=== PATIENT | male | born 1950 | race Caucasian/White ===

== ENCOUNTER → 2023-05-07 | Day surgery (SDC) | payer OTHER ==
[2023-05-04 15:10] LABS: Absolute Basophils 0.1 K/uL (0-0.5); Absolute Eosinophils 0.1 K/uL (0-0.5); Absolute Lymphocytes (CBC) 3.3 K/uL (0.7-4.9); Absolute Monocytes 0.5 K/uL (0.1-1.3); Absolute Neutrophil 4.4 K/uL (1.8-8.0); Basophils % 1.2 % (0-1.3); Eosinophils % 0.9 % (0-4.4); Hematocrit 43.1 % (39.6-49.0); Hemoglobin 14.6 g/dL (13.6-17.9); MCH 32.2 pg (27.0-35.0); MCHC 33.8 g/dL (32.0-36.0); MCV 95.2 fL (80-100); MPV 8.9 fL (7.6-11.3); Monocytes % 5.8 % (3.3-12.3); Neutrophils % 53.1 % (41.7-73.7); Platelets 234 thou/uL (152-406); RBC Red Blood Cell Count 4.52 M/uL (4.33-5.43); Red Cell Distribution Width 13.8 % (12.1-15.2)
[2023-05-04 15:23] LABS: Anion Gap 7.9 mEq/L (5.0-15.0); Potassium 3.9 mEq/L (3.5-5.1)
--- NOTE | 2023-05-04 19:39 | RAD REPORT ---
EXAM DESCRIPTION: RAD - Chest Pa And Lat (2 Views) - 05/04/2023 3:09 pm CLINICAL HISTORY: pre op for surgery. Hypertension COMPARISON: Chest Pa And Lat (2 Views) dated 03/03/2021; Abdomen 1 View (KUB) dated 02/14/2021; Abdom en 1 View (KUB) dated 04/14/2019; Abdomen 1 View (KUB) dated 02/03/2019 TECHNIQUE: PA and lateral views of the chest were obtained. FINDINGS: The lungs are clear. Heart size is normal and central vasculature is within normal limits. No pleural effusion or pneumothorax seen. No acute bony finding noted. IMPRESSION: No acute cardiopulmonary process.
[~2023-05-07] MED LIST: FENTANYL CITR 100 MCG/2 ML ONE; GLYCOPYRROLATE 0.2 MG/ML SYR ONE; KETOROLAC 30 MG/ML INJ ONE; LIDOCAINE 1% MPF 5 ML VIAL ONE; MIDAZOLAM HCL 2 MG/2 ML INJ ONE; NEOSTIGMINE 1 MG/ML -10 ML VIAL ONE; ONDANSETRON 4 MG/2 ML VIAL ONE; ROCURONIUM 50 MG/5 ML VIAL IV ONE; propofoL 200 MG/20 ML VIAL IV ONE
[2023-05-07] MEDS: NA CHLORIDE 0.9% 1,000 ML ONE ×2 (08:20→10:56)
[2023-05-07] MEDS: CEFAZOLIN SODIUM 1 GM/VIAL ONE (09:25)
--- NOTE | 2023-05-07 10:14 | P.BOP ---
Preoperative diagnosis: Tender right inguinal hernia Postoperative diagnosis: same Primary procedure: laparoscopic repair of Tender right inguinal hernia with mesh Estimated blood loss: <10cc Specimen: none Findings: right inguinal hernia Anesthesia: General Complications: None Implants: 3D medium Transferred to: Recovery Room Condition: Good
[2023-05-07] MEDS: MORPHINE 4 MG/ML SYR ONE (10:44)
[2023-05-07 10:57] VITALS: O2SAT 100
--- NOTE | 2023-05-07 11:40 | DS ---
Diagnosis: Tender right inguinal hernia. Procedure: Laparoscopic repair of tender right inguinal hernia. Disposition: Home. Condition: Stable. Activity: As tolerated. No heavy lifting. Followup: Follow up in my office in 1 week. Call for appointment [phone]. Keep area dry for 48 ho urs, then may shower. Keep Steri-Strip intact. I talked to the . He has taken Flomax in the ut [facility]. He has been seeing his urologist in the past, so we are going to give him some Flomax to help an d then the narcotics. Then, we explained to her the importance of taking the stool softeners. Then, the patient will put some cold compress at the inguinal region. AGATHA/MITUL Voice ID: [id number] Report ID: [id number]
--- NOTE | 2023-05-07 11:40 | OP ---
Date of Procedure: 05/07/2023 Surgeon: Heladio Murrell MD Preoperative Diagnosis: Tender right inguinal hernia. Postoperative Diagnosis: Tender right inguinal hernia. Procedure: Laparoscopic repair of tender right inguinal hernia with mesh. Estimated Blood Loss: Less than 10 cc. Anesthesia: General plus local. Implant: 3D medium. Complications: None. Indications: This is a case of a male who comes to us with a tender right inguinal hernia. The bene fits, alternatives, and risks of laparoscopic versus open repair with mesh were fully explained to th e patient which include, but not limited to, infection, bleeding, damage to adjacent structures, anes thesia complication, recurrence, chronic pain, DE, even . He also understands this may not reli mary carmen any symptoms. He might need more than one surgical intervention. He understood, signed a consen t. We also explained to him pros and cons of mesh placement and the intention is to most likely use mesh in that region, and pros and cons were discussed with him. He signed a consent. Procedure In Detail: The patient was brought to the operating room, placed in supine position. Anes thesia was done without complication. Time-out was called. Right inguinal and abdominal area and ge nitalia were prepped and draped in a sterile fashion. Local anesthesia was applied to the infraumbil ical region, followed by sharp knife. Incision was carried down to the fascia until we found the ant erior rectus sheath, which was opened and then the muscle retracted laterally to expose the posterior rectus sheath. The extraperitoneal space was developed with the help of blunt dissection and then a balloon-tip Spacemaker trocar was placed in that area directed to the pubic symphysis. A laparoscop e was placed and then the balloon was inflated under direct visualization to create the extraperitone al space. After that, the balloon was deflated, removed from the area. The area was then insufflate d and under direct visualization, we proceeded to place a 5 mm trocar just above the pubic symphysis and another one retirement between the first and the second one. The preperitoneal space was further de veloped by exposing the inferior epigastric vessels keeping them anterior. The Ilir ligament was d issected laterally to the junction to the iliac vein, and the dissection continued inferiorly to the iliopubic tract avoiding damage to the genital branch of the genitofemoral nerve and lateral femoral cutaneous nerve. The cord structures were carefully skeletonized. The hernia sac was identified and reduced by gentle traction into the peritoneal cavity. After that, I introduced a 3D mesh over that region and carefully aligned the place to cover direct/indirect spaces. The mesh was secured in earl ce with the help of SorbaFix fixation device lateral and superior to the iliopubic tract and inferior medial to the Ilir ligament. At that moment, after ensuring adequate hemostasis, we proceeded to stop the insufflation, allowed the air to escape, and removed the trocars. The anterior rectus sheat h was closed with #1 Vicryl. 3-0 chromic was used for the subcutaneous tissue and then the skin in a subcuticular fashion, and Steri-Strip on the top. Sponge count and instrument counts correct at the end of the case. Testicles were in the scrotum. The patient was sent to recovery in stable conditi on. AGATHA/MITUL Voice ID: [id number] Report ID: [id number]
[2023-05-07] MEDS: CODEINE 30MG/APAP 300MG TAB ONE (11:45)
[2023-05-07] MEDS: TAMSULOSIN 0.4 MG SR CAP ONE (14:18)
[2023-05-07 14:25] VITALS: BP 128/68; TEMP 97.4
== END | disposition home or self-care (01) ==
LOC: OR 07:56
PROVIDERS: ATTEND Surgery
PROC: 0YU54JZ Supplement Right Inguinal Region with Synthetic Substitute, Percutaneous Endoscopic Approach (ICD-10-PCS; principal; 2023-05-07 09:15)
DX: K40.90 Unilateral inguinal hernia, without obstruction or gangrene, not specified as recurrent (principal); E11.9 Type 2 diabetes mellitus without complications; E78.00 Pure hypercholesterolemia, unspecified; I10 Essential (primary) hypertension
CPT/HCPCS: 85025; 80048; 36415; 82947 ×2; 71046; 49650; J2704; J2710; J2001; J2250; J3010; J2405; J7030 ×2; J0690

== ENCOUNTER 2024-05-27 07:56 | Day surgery (SDC) | payer OTHER ==
[2024-05-20 11:40] LABS: Absolute Basophils 0.1 K/uL (0-0.5); Absolute Eosinophils 0.1 K/uL (0-0.5); Absolute Lymphocytes (CBC) 2.8 K/uL (0.7-4.9); Absolute Monocytes 0.5 K/uL (0.1-1.3); Absolute Neutrophil 3.4 K/uL (1.8-8.0); Basophils % 0.8 % (0-1.3); Hemoglobin 15.3 g/dL (13.6-17.9); MCH 31.8 pg (27.0-35.0); MCHC 34.1 g/dL (32.0-36.0); MCV 93.2 fL (80-100); MPV 9.1 fL (7.6-11.3); Monocytes % 6.9 % (3.3-12.3); Neutrophils % 50.3 % (41.7-73.7); Platelets 232 thou/uL (152-406); RBC Red Blood Cell Count 4.83 M/uL (4.33-5.43); Red Cell Distribution Width 13.9 % (12.1-15.2)
[2024-05-20 11:47] LABS: PT Prothrombin Time 11.3 SECONDS (10-13.0); Protime INR 0.99
[2024-05-20 11:52] LABS: Anion Gap 5.2 mEq/L (5.0-15.0); Potassium 4.2 mEq/L (3.5-5.1)
--- NOTE | 2024-05-20 12:14 | EKG ---
Test Date: 2024-05-20 Test Time: 11:13:40 Community Engagement Coordinator: COTY MEASUREMENT RESULTS: Intervals: Rate: 57 NH: 234 QRSD: 102 QT: 404 QTc: 393 Bison: P: 115 NH: 234 QRS: 67 T: 40 INTERPRETIVE STATEMENTS: Sinus bradycardia with 1st degree AV block Otherwise normal ECG Compared to ECG 01/20/2019 07:57:40 First degree AV block now present Electronically Signed On 05-20-24 12:14:23 CDT by Fran Do
--- NOTE | 2024-05-20 14:12 | RAD REPORT ---
EXAMINATION: TWO VIEW CHEST XR CLINICAL INDICATION: Male, 74 years old. [facility] op for day surgery. Hypertension TECHNIQUE: 2 view radiographs of the chest were performed. COMPARISON: 01/25/2024 FINDINGS: The lungs are well inflated and clear. No pneumothorax or sizable effusion. The heart is normal in si ze. Mediastinal contours are unchanged with right hilar calcified nodes, may reflect sequelae of remote granulomatous infection. IMPRESSION: No acute or significant abnormalities.
[2024-05-27] MEDS: NA CHLORIDE 0.9% 1,000 ML ONE (08:10)
[2024-05-27] MEDS ORDERED: propofoL 200 MG/20 ML VIAL IV ONE (10:14)
[2024-05-27] MEDS ORDERED: ONDANSETRON 4 MG/2 ML VIAL ONE (10:14)
[2024-05-27] MEDS ORDERED: KETOROLAC 30 MG/ML INJ ONE (10:14)
[2024-05-27] MEDS ORDERED: LIDOCAINE 1% MPF 5 ML VIAL ONE (10:14)
[2024-05-27] MEDS: CEFAZOLIN SODIUM 2 GM/VIAL ONE (10:15)
[2024-05-27] MEDS ORDERED: FENTANYL CITR 100 MCG/2 ML ONE (10:16)
[2024-05-27] MEDS ORDERED: EPHEDRINE SULF 50 MG/ML VIAL ONE (10:42)
[2024-05-27] MEDS ORDERED: NA CHLORIDE 0.9% 1,000 ML ONE (10:59)
[2024-05-27] MEDS ORDERED: CODEINE 30MG/APAP 300MG TAB PO PRN (11:39)
--- NOTE | 2024-05-27 11:59 | P.OP ---
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 Bryson presented to the urology clinic with gross hematuria and was found to have bladder calculi as the likely source. He has a history of UroLift in 2018, but had recurrent obstructive LUTS, at least partially contributed to by the bladder calculi. He was counseled on options for management and elected to proceed with simultaneous removal of the bladder calculi and management of the obstruction due to BPH. Procedure note: The patient was consented in the preoperative holding area before being transferred to the operative suite where general anesthesia was induced. He was given Ancef 2 g IV antimicrobial prophylaxis, and pneumoboots were provided for DVT prophylaxis. He was placed in the lithotomy position, padded and secured to the table appropriately. His genitalia was prepped with Hibiclens and he was draped in standard fashion. The case was begun using a 22 Latvian rigid cystoscope to traverse the urethra and into the bladder navigating beyond some interdigitating lateral lobar hypertrophy with slight extended prostatic length. There was anterolateral overhang emanating from the left at the bladder neck contributing to the obstruction. Within the bladder, 2 calculi were noted that were very hard in appearance, and each about 8 to 10 mm in diameter. I initially attempted to use the stone property insurance inspector device, but the stones were too hard to be crushed. Since at the moment of the surgery there was a problem with the supply of the laser equipment, I then remove the cystoscope and utilize urethral sounds to dilate the meatus and fossa navicularis to 30 Latvian before placing a 26 Latvian resectoscope using a visual obturator via the urethra into his bladder. Using the resectoscope, I was able to remove the calculi intact given the larger size of the lumen of the sheath. Once the calculi were removed, I surveyed the bladder for any other foreign bodies or papillary mucosal lesions, and none were noted. As a result, I then remove the resectoscope and replaced it with the 20 Latvian UroLift visual obturator and sheath. Once in the bladder, I switched the visual obturator for a UroLift delivery device and the first implant. The first implant was targeted at the patient's left bladder neck by sweeping th e anterolateral overhanging tissue from the 12 o'clock position over to the 2 to 3 o'clock position and advancing the scope distally approximately 1.5 to 2 cm while compressing the tissue approximately 15 degrees. At this point, I pulled the trigger delivering the needle through the substance of the prostate. I then compressed the prostate as much as possible for at least another 15 to 20 degree s before pulling the trigger a second time seeding the capsular tab. I then pulled the trigger third time which did finish retracting the needle, and I advanced the scope 2 to 3 mm toward the bladder neck opening until the white line of the monofilament was centered in the delivery bay. At this point, I pulled the trigger a fourth time delivering the urethral end piece which did nicely lateralized the tissue in that location. Of note, there was still a slight degree of anterolateral overhang, but the channel was already significantly more open at the bladder neck. As a result, I advanced the scope back into the bladder and switched the delivery device for a new implant which was then targeted on the patient's right side at approximately 2 cm distal to the bladder neck opening. This was targeted at around the 9 to 10 o'clock position and did beautifully lateralize the channel at the bladder neck. A new implant was then loaded and placed at the left apex at the level of the verumon tanum at around the 3 o'clock position, and a fourth implant at the level of the verumontanum at around the 9 o'clock position. Survey of the channel created revealed residual mid zone prostate interdigitating hypertrophy from the lateral lobes. So I placed the fifth implant in the left lateral lobe between the apical and base implant, and a 60 implant in the right lateral lobe. I then surveyed the channel created using a visual obturator, and while the beginnings of a continuous anterior channel were in fact visible, there was still a degree of apical kissing lateral lobar hypertrophy that was at the distalmost aspect of the verumontanum, where the apical lateral lobes had grown beyond the proximal to midportion of the verumontanum, and a degree of visible kissing lobar hypertrophy was present at that location. Additionally, while the tissue was no longer kissing in the mid zone of the prostate, it was approximating, but a continuous anterior channel was visible. Because of the residual anterolateral overhang on the left in the mid zone bladder neck, I elected to place a 7th and final implant into that tissue designed to try to elevate that and lateralize it but also tried to lateralize some of the mid zone tissue that was approximating in the midline, all in 1 implant. As a result, the seventh and final implant was placed in that tissue and did beautifully lateralize the tissue there creating a continuous anterior channel with the exception of the slight approximation at the distalmost extent of the verumontanum of the apical lateral lobes. As a result, I retrograde filled his bladder because of some bleeding emanating from the prostate and he decompressed it using the scope to try to remove any clots. I then filled his bladder before removing the scope and pl acing a new 20 Latvian urethral High catheter via his urethra into his bladder with ease. I placed 30 cc of sterile water in the balloon. I then irrigated the catheter with a couple of 100 cc of sterile saline to remove some small clots within. After this was done, the drainage was light pink to clear; so the catheter was connected to an leg bag and the patient taken out of the lithotomy position. He was then awakened from general anesthesia before being transferred to a stretcher and then transferred to the recovery room in good condition. Complications: None Discharge disposition: He is scheduled for shockwave lithotripsy of his kidney stones on 1 side within the next 2 weeks. He apparently wants to keep with that very close operative deadline. We will go ahead and schedule him for routine 1 month follow-up of his UroLift per routine.
[2024-05-27 13:26] VITALS: BP 149/76; TEMP 97.4; O2SAT 98
[2024-05-27] MEDS: PHENAZOPYRIDINE 100MG TAB PO ONE (14:10)
== END 2024-05-27 14:35 | disposition home or self-care (01) ==
LOC: OR 07:56
PROVIDERS: ATTEND Urology
PROC: 0T7D8DZ Dilation of Urethra with Intraluminal Device, Via Natural or Artificial Opening Endoscopic (ICD-10-PCS; principal; 2024-05-27 10:00)
PROC: 0TCB8ZZ Extirpation of Matter from Bladder, Via Natural or Artificial Opening Endoscopic (ICD-10-PCS; 2024-05-27 10:00)
DX: N40.1 Benign prostatic hyperplasia with lower urinary tract symptoms (principal); N21.0 Calculus in bladder
CPT/HCPCS: 93005; 87088; 85025; 87086; 80048; 36415; 85610; 82947 ×2; 88300; 82360; 71046; 52441; 52442 ×6; 52310; J2704; J2003; J3010; J2405; J7030 ×2

== ENCOUNTER 2024-07-08 05:58 | Day surgery (SDC) | payer OTHER ==
[2024-06-24 11:44] LABS: Specific Gravity 1.019 (1.005-1.030); Sqamous Epithelial None Seen /HPF (None Seen); Urine Bacteria None Seen /HPF (<20); Urine Bilirubin NEGATIVE (Negative); Urine Blood 2+ (Negative); Urine Clarity Clear (Clear); Urine Color Light-Yellow (Yellow); Urine Culture Reflex Order REFLEXED; Urine Glucose 4+ (Over) (Negative); Urine Ketones NEGATIVE (Negative); Urine Microscopic Reflex YN ORDER UMIC; Urine Mucus Slight /HPF (None Seen); Urine Nitrite NEGATIVE (Negative); Urine Protein NEGATIVE (Negative); Urine Urobilinogen Normal (Normal); Urine WBC <5 /HPF (<5); Urine pH 5.5 (5.0-7.0)
[2024-06-24 12:14] LABS: Anion Gap 8.3 mEq/L (5.0-15.0); Potassium 4.3 mEq/L (3.5-5.1)
[2024-07-08] MEDS ORDERED: NA CHLORIDE 0.9% 1,000 ML ONE (06:05)
[2024-07-08 07:14] LABS: Absolute Basophils 0.1 K/uL (0-0.5); Absolute Eosinophils 0.1 K/uL (0-0.5); Absolute Lymphocytes (CBC) 2.5 K/uL (0.7-4.9); Absolute Monocytes 0.6 K/uL (0.1-1.3); Absolute Neutrophil 3.8 K/uL (1.8-8.0); Basophils % 1.2 % (0-1.3); Eosinophils % 1.4 % (0-4.4); Hematocrit 44.8 % (39.6-49.0); Hemoglobin 15.3 g/dL (13.6-17.9); Lymphocytes % 35.4 % (15.3-44.8); MCH 31.5 pg (27.0-35.0); MCHC 34.1 g/dL (32.0-36.0); MCV 92.4 fL (80-100); MPV 9.7 fL (7.6-11.3); Nucleated Red Blood Cells % 0.2 % (0-0); Platelets 210 thou/uL (152-406); RBC Red Blood Cell Count 4.85 M/uL (4.33-5.43); Red Cell Distribution Width 13.9 % (12.1-15.2)
[2024-07-08] MEDS ORDERED: MIDAZOLAM HCL 2 MG/2 ML INJ ONE (07:19)
[2024-07-08] MEDS ORDERED: ONDANSETRON 4 MG/2 ML VIAL ONE (07:19)
[2024-07-08] MEDS ORDERED: LIDOCAINE 2% MPF 5 ML VIAL ONE (07:19)
[2024-07-08] MEDS ORDERED: propofoL 200 MG/20 ML VIAL IV ONE (07:19)
[2024-07-08] MEDS ORDERED: FENTANYL CITR 100 MCG/2 ML ONE (07:20)
[2024-07-08] MEDS: CEFAZOLIN SODIUM 2 GM/VIAL ONE (07:45)
[2024-07-08] MEDS ORDERED: EPHEDRINE SULF 50 MG/ML VIAL ONE (08:01)
[2024-07-08 09:10] VITALS: O2SAT 99
--- NOTE | 2024-07-08 09:25 | P.OP ---
Date of Service: 07/08/24 Preoperative diagnosis: Right 11 mm nephrolithiasis Recurrent nephrolithiasis Postoperative diagnosis: Right 11 mm nephrolithiasis Recurrent nephrolithiasis Principal procedure: Right ESWL/extracorporeal shockwave lithotripsy Indication for procedure: 74-year-old gentleman with recurrent nephrolithiasis and BPH with LUTS post recent UroLift, noting he is voiding much better than before, who presents for management of his bilateral nephrolithiasis starting with the right side where the stone burden was 11 mm in diameter. Procedure note: The patient was consented in the preoperative holding area before being transferred to the operative suite where general anesthesia was induced. Ancef 2 g IV antimicrobial prophylaxis was provided, and pneumoboots were provided for DVT prophylaxis. He was placed supine on the shockwave lithotripsy table with a water bath beneath his right flank, and the stone was targeted using fluoros copic imagery and anteroposterior and left right dimensions. The KUB taken preoperatively was used for guidance to localize the stone, which was present within the lower pole laterally. Shockwave lithotripsy was then begun at a low power setting and increased over the course of 500 shocks to a power of 8. A 2- minute pause was given after 200 shocks were delivered. After thousand shocks, we increased the rate to 1.5 Hz and continue to shock the stone. After 2000 shocks were delivered, repeat imagery revealed evidence of fragmentation of the stone with some distribution of the stone dust laterally toward the infundibulopelvic region of the kidney on the right. As a result, we delivered an additional 500 shocks to the nucleus of the stone before delivering the remaining 500 shocks for a total of 3000 shocks delivered to the dust trail extending toward the renal pelvis along the infundibulum. In the end, we were pleased with the result and the patient was awakened from general anesthesia. He was then transferred to a stretcher before being transferred to the recovery room in good condition. Complications: None Discharge disposition: Follow-up as already scheduled for next week since he had a UroLift about a month ago. We will arrange a KUB at the time of that follow-up for him to complete prior to repeat follow-up about 2 months later where we will consider scheduling and proceeding with left ESWL.
[2024-07-08 09:31] VITALS: BP 121/71; TEMP 98.4
[2024-07-08] MEDS ORDERED: CODEINE 30MG/APAP 300MG TAB ONE (10:22)
[2024-07-08] MEDS: CODEINE 30MG/APAP 300MG TAB PO PRN (10:30)
== END 2024-07-08 11:05 | disposition home or self-care (01) ==
LOC: OR 05:58
PROVIDERS: ATTEND Urology
PROC: 0TF3XZZ Fragmentation in Right Kidney Pelvis, External Approach (ICD-10-PCS; principal; 2024-07-08 07:30)
DX: N20.0 Calculus of kidney (principal); I10 Essential (primary) hypertension; I11.9 Hypertensive heart disease without heart failure
CPT/HCPCS: 87088; 85025; 81001; 87086; 80048; 36415; 82947 ×2; 50590 ×2; J2704; J2003; J2250; J3010; J2405; J7030

== ENCOUNTER 2024-10-14 05:57 | Day surgery (SDC) | payer OTHER ==
[2024-10-02 15:12] LABS: Absolute Lymphocytes (CBC) 3.0 K/uL (0.7-4.9); Hematocrit 46.1 % (39.6-49.0); Hemoglobin 15.4 g/dL (13.6-17.9); MCH 30.6 pg (27.0-35.0); MCHC 33.5 g/dL (32.0-36.0); MCV 91.3 fL (80-100); MPV 8.9 fL (7.6-11.3); Nucleated RBC Absolute Count 0.0 (0-0); Nucleated Red Blood Cells % 0.0 % (0-0); RBC Red Blood Cell Count 5.05 M/uL (4.33-5.43); White Blood Count 7.40 thou/uL (4.3-10.9)
[2024-10-02 15:13] LABS: Urine Culture Reflex Order REFLEXED; Urine Microscopic Reflex YN NO UMIC
[2024-10-02 15:19] LABS: PT Prothrombin Time 11.2 SECONDS (10-13.0); Protime INR 0.99
[2024-10-02 15:27] LABS: Anion Gap 9.8 mEq/L (5.0-15.0); BUN Blood Urea Nitrogen 18.0 mg/dL (7-18); Glucose Level 114.0 mg/dL (74-106); Potassium 3.8 mEq/L (3.5-5.1)
[2024-10-14] MEDS ORDERED: NA CHLORIDE 0.9% 1,000 ML ONE (06:32)
--- NOTE | 2024-10-14 07:47 | RAD REPORT ---
EXAM: XR Abdomen 1 View (KUB) HISTORY: Renal stones. preop order SDS Rm 5 COMPARISON: 09/02/2024 FINDINGS: Single view of the abdomen shows a nonspecific, nonobstructive bowel gas pattern. Mild stoo l burden throughout the colon. Stable left renal calculi largest measuring 7 mm. Right renal calculi, largest is slightly more prominent measuring up to 1 cm. The bones are unremarkable. IMPRESSION: Bilateral renal calculi as above.
[2024-10-14] MEDS: CEFAZOLIN SODIUM 2 GM/VIAL ONE (08:04)
[2024-10-14] MEDS ORDERED: CODEINE 30MG/APAP 300MG TAB PO PRN (09:40)
[2024-10-14 10:33] VITALS: BP 118/62; TEMP 97.4; O2SAT 98
--- NOTE | 2024-10-14 10:48 | P.OP ---
Date of Service: 10/14/24 Preoperative diagnoses: Left nephrolithiasis -8 mm H/o right ESWL Postoperative diagnosis: Left nephrolithiasis -8 mm and 6 mm H/o right ESWL Principal procedure: Left extracorporeal shockwave lithotripsy/ESWL Indications for procedure: 74-year-old gentleman with recurrent stone formation and bilateral nephrolithiasis s/p right ESWL now presenting for staged left ESWL. Procedure note: The patient was consented in the preoperative holding area before being transferred to the operative suite where general anesthesia was induced. He was given Ancef 2 g IV antimicrobial prophylaxis, and pneumoboots were provided for DVT prophylaxis. He was placed supine on the shockwave lithotripsy table with a water bath beneath his left flank. Fluoroscopic targeting of the stone was performed in the left right and anteroposterior dimensions. Shockwave lithotripsy was then initiated at a power of 4, and after 200 shocks, a 2-minute pause was given. Over the course of the next 300 shocks, the power was increased to 6, and over the course of the next 500 shocks, it was increased to a power of 7. Repeat fluoroscopic imaging and retargeting of the stone was performed periodically throughout the course of a total of 2500 shocks delivered to the dominant 8 mm stone seen. After 1000 shocks, the rate was increased to 1.5 Hz. Between 2500 and 3000 shocks, the more inferolateral density but did appear to be mobile with the kidney was additionally treated for a total of 500 shocks. In the end, there did appear to be some fragmentation of the primary treated stone; so the patient was awakened from general anesthesia, transferred to a stretcher, and then transferred to the recovery room in good condition. Complications: None Discharge disposition: He should strain his urine to collect any stone dust and perform a Litholink metabolic profile assessment with the 2 urine collections in about 1 month prior to follow-up in 2 to 3 months.
== END 2024-10-14 10:14 | disposition home or self-care (01) ==
LOC: OR 05:57
PROVIDERS: ATTEND Urology
PROC: 0TF48ZZ Fragmentation in Left Kidney Pelvis, Via Natural or Artificial Opening Endoscopic (ICD-10-PCS; principal; 2024-10-14 07:30)
DX: N20.0 Calculus of kidney (principal); I10 Essential (primary) hypertension; E11.9 Type 2 diabetes mellitus without complications
CPT/HCPCS: 87088; 85025; 87086; 80048; 36415; 85610; 82947 ×2; 81003; 74018; 50590; J7030; J1100; J2003; J2250; J2405; J2704; J3010